=== PATIENT | female | born 1985 | race Hispanic/Latino ===

== ENCOUNTER 2016-10-17 20:08 | Emergency (ER) | payer OTHER ==
[2016-10-17 20:48] LABS: Urine Drugs of Abuse Note Disclamer
--- NOTE | 2016-10-17 20:56 | Emergency Department Report ---
HPI - General Chief Complaint: Psych Time Seen by Provider: 10/17/16 20:42 - HPI HPI: This is a 30-year-old female presents to the emergency Department via PD after she was found sleeping or intoxicated in her car. The patient is suffering from significant depression after she recently had her father from complications of cirrhosis and also recently found out that her boyfriend is "leaving me for his ex-." The patient has a long-standing history of drug abuse including IV heroin and methamphetamines. The patient says that she has been going to the methadone clinic for the past year and has been doing well. However when all of the recent issues piled up, the patient decided that she was going to inject herself with a large amount of heroin in order to end her life. She already had taken some Xanax after having an argument with the boyfriend, and this was on top of the methadone. She sat in the car with the decision of whether or not to inject heroin and says that she did not in fact use it because she fell asleep. Then bystanders or the police knocked on the car and brought him in to be seen. She denies any other past medical or psychiatric history. She does not have a primary care physician. ED Past Medical Hx - Past Medical History Hx Psychiatric Treatment: Yes (Substance abuse) - Social History Smoking Status: Current Every Day Smoker - Medications Home Medications: Home Medications Medication Instructions Recorded Confirmed Last Taken Type Nitrofurantoin Burt/M-Cryst 100 mg PO BID #10 capsule 10/17/16 Unknown Rx [Macrobid CAP] ED Review of Systems ROS: Stated complaint: EVAL Other details as noted in HPI Comment: All other systems reviewed and negative Constitutional: denies: chills, fever Eyes: denies: eye pain, eye discharge, vision change ENT: denies: ear pain, throat pain Respiratory: denies: cough, shortness of breath, wheezing Cardiovascular: denies: chest pain, palpitations Gastrointestinal: denies: abdominal pain, nausea, diarrhea Genitourinary: denies: urgency, dysuria, discharge Musculoskeletal: denies: back pain, joint swelling, arthralgia Skin: denies: rash, lesions Neurological: denies: headache, weakness, paresthesias Psychiatric: depression, suicidal thoughts. denies: auditory hallucinations, visual hallucinations, homicidal thoughts Physical Exam - Physical Exam Vital Signs: Vital Signs 10/17/16 10/17/16 20:37 20:53 Temperature 98.1 F Pulse Rate 90 Respiratory 16 18 Rate Blood Pressure 113/77 [Left] O2 Sat by Pulse 99 99 Oximetry Physical Exam: GENERAL: The patient is well-developed well-nourished. HEENT: Normocephalic. Atraumatic. Extraocular motions are intact. Patient has moist mucous membranes. Pupils equal reactive to light bilaterally. NECK: Supple. Trachea is midline. CHEST/LUNGS: Clear to auscultation. There is no respiratory distress noted. HEART/CARDIOVASCULAR: Regular. There is no tachycardia. There is no gallop rub or murmur. ABDOMEN: Abdomen is soft, nontender. Patient has normal bowel sounds. There is no abdominal distention. SKIN: Skin is warm and dry. NEURO: The patient is awake, alert, and oriented. The patient is cooperative. The patient has no focal neurologic deficits. The patient has normal speech. Normal gait. MUSCULOSKELETAL: There is no tenderness or deformity. There is no limitation range of motion. There is no evidence of acute injury. PSYCH: Patient is crying. She does not appear to be responding to any internal stimuli. Able to hold a normal conversation. ED Course Vital Signs 10/17/16 10/17/16 20:37 20:53 Temperature 98.1 F Pulse Rate 90 Respiratory 16 18 Rate Blood Pressure 113/77 [Left] O2 Sat by Pulse 99 99 Oximetry ED Medical Decision Making - Lab Data Result diagrams: 10/17/16 21:43 10/17/16 21:43 - Medical Decision Making This is a 30-year-old female who presents to the emergency department after she was found sleeping or passed out in her car with a syringe full of heroin with the intent on taking a large dose in order to end her life. The patient is dealing with severe depression secondary to her father's and what appears to be the end of a relationship. She did take the methadone that she usually takes, plus some Xanax, but apparently did not take the heroin. She appears awake and alert in no acute medical distress but she has very upset and crying. Her labs are mostly unremarkable except for the urine drug screen which has multiple positives. Vital signs stable throughout her ED course. The patient has been made a 1013 secondary to the suicidal ideations and intent. She is medically cleared for psychiatric placement. - Differential Diagnosis depression, polysubstance abuse, bipolar disorder Critical Care Time: No Critical care attestation.: If time is entered above; I have spent that time in minutes in the direct care of this critically ill patient, excluding procedure time. ED Disposition Clinical Impression: Suicidal ideations, Polysubstance abuse Depression Qualifiers: Depression Type: unspecified Qualified Code(s): F32.9 - Major depressive disorder, single episode, unspecified UTI (urinary tract infection) Qualifiers: Urinary tract infection type: acute cystitis Hematuria presence: without hematuria Qualified Code(s): N30.00 - Acute cystitis without hematuria Disposition: DC/TX-65 PSY HOSP/PSY UNIT Is pt being admited?: No Condition: Stable Prescriptions: Nitrofurantoin Burt/M-Cryst [Macrobid CAP] 100 mg PO BID #10 capsule Time of Disposition: 22:30
[2016-10-17 21:18] LABS: Bacteria,Urine 1+ /HPF (Negative); Bilirubin,Urine NEG (Negative); Blood,Urine NEG (Negative); Ketones,Urine TR mg/dL (Negative); Leukocyte Esterase,Urine LG (Negative); Mucus,Urine 3+ /HPF; Nitrite,Urine NEG (Negative); Urobilinogen,Urine < 2.0 mg/dL (<2.0)
[2016-10-17 21:23] LABS: WBC,Urine > 182.0 /HPF (0.0-6.0)
[2016-10-17 22:01] LABS: Basophils % (Auto) 0.7 % (0.0-1.8); Eosinophils % (Auto) 3.9 % (0.0-4.3); Hematocrit 38.7 % (30.3-42.9); Hemoglobin 13.1 gm/dl (10.1-14.3); Mean Corpuscular HGB Conc 34 % (30-34); Mean Corpuscular Hemoglobin 30 pg (28-32); Mean Corpuscular Volume 90 fl (79-97); Platelet Count 203 K/mm3 (140-440); Red Blood Count 4.31 M/mm3 (3.65-5.03); Red Cell Distribution Width 13.2 % (13.2-15.2); White Blood Count 10.6 K/mm3 (4.5-11.0)
[2016-10-17] MEDS: MACROBID PO SCH (22:03)
[2016-10-17 22:14] LABS: Anion Gap 15 mmol/L; BUN/Creatinine Ratio 14.44; Blood Urea Nitrogen 13 mg/dL (7-17); Calcium 8.9 mg/dL (8.4-10.2); Carbon Dioxide 27 mmol/L (22-30); Chloride 104.4 mmol/L (98-107); Glucose 94 mg/dL (65-100); Potassium 3.7 mmol/L (3.6-5.0); Sodium 143 mmol/L (137-145)
[2016-10-18] MEDS: MACROBID PO SCH ×2 (11:31→22:27)
[2016-10-19] MEDS ORDERED: ZOFRAN ODT PO ONE (10:54)
[2016-10-19] MEDS ORDERED: ZOFRAN ODT ONE (10:55)
[2016-10-19] MEDS: MACROBID PO SCH ×2 (11:16→22:15)
[2016-10-19] MEDS ORDERED: XANAX PO ONE (11:29)
[2016-10-19] MEDS ORDERED: CATAPRES PO ONE ×2 (11:30→17:37)
[2016-10-19] MEDS ORDERED: ATIVAN PO PRN (14:10)
--- NOTE | 2016-10-19 14:35 | Consultation ---
History of Present Illness - Reason for Consult Consult date: 10/19/16 Reason for consult: Mental Health Evaluation Requesting physician: TRAV SURESH - Chief Complaint Chief complaint: "I feel horrible" - History of Present Psychiatric Illness This is a 30-year-old female presents to the emergency Department via PD after she was found sleeping or intoxicated in her car. Today patient is calm and cooperative during assessment. She stated her father recently and she is having relationship issues with her boyfriend. She stated being overwhelmed and decided to inject herself with heroin (large dose). She denies wanting to overdose or kill herself, but could not explain her actions. She stated doing well the past year by going to the methadone clinic. Since the lost of father and the relationship issues she is having, things in her life has gotten bad per the patient. She stated feeling sad and hopeless prior to injecting herself with the heroin. She stated taking multiple xanax over a period of days which she does not have a prescription. She denies SI/HI's and AVH's. She stated sleeping "okay." She denies a poor appetite. She denies excessive alcohol consumption (etoh). Medications and Allergies Allergies Allergy/AdvReac Type Severity Reaction Status Date / Time No Known Allergies Allergy Verified 12/08/15 20:59 Home Medications Medication Instructions Recorded Confirmed Last Taken Type Nitrofurantoin Tripp/M-Cryst 100 mg PO BID #10 capsule 10/17/16 Unknown Rx [Macrobid CAP] Active Meds: Active Medications Nitrofurantoin Macrocrystals (Macrobid) 100 mg PO BID TRACI Last Admin: 10/19/16 11:16 Dose: 100 mg Past psychiatric history - Past Medical History Past Medical History: No medical history Past Surgical History: No surgical history - past Psychiatric treatment and history psychiatric treatment history: Patient been to multiple rehab services. Denies a fam psy hx. - Social History Social history: lives with family Mental Status Exam - Vital signs Last Vital Signs Temp 98.2 F 10/19/16 11:37 Pulse 62 10/19/16 11:37 Resp 14 10/19/16 11:37 BP 105/63 10/19/16 11:37 Pulse Ox 99 10/19/16 11:37 - Exam Narrative exam: ROS: (+) depression MSE: Appearance: calm, cooperative Behavior: regular eye contact Speech: regular rate and tone Mood: "not well" Affect: labile Thought Process: circumstantial Thought Content: denies SI/HI's and AVH's Motor Activity: lying in bed Cognition: A/Ox 3 Insight: limited Judgment: limited Results Result Diagrams: 10/17/16 21:43 10/17/16 21:43 All other labs normal. Assessment and Plan Assessment and plan: Impression: MDd Severe type. Substance Use DO (amphetamines). Opioid Use DO ( heroin). Anxiolytic Use DO (xanax). Today patient is calm and cooperative during assessment. Patient reports nausea/anxiety (withdrawals). DDx: R/O Bipolar, R/O Substance Use DO Recommendation/Plan: Continue 1013 with placement to inpatient psy services. Start Clonidine 0.1 mg PO BID for anxiety, Ativan 1 mg PO Q6hrs PRN for withdrawals, Prozac 20 mg PO daily for depression, and Zofran 4 mg ODT PO Q6hrs for nausea. Discusssed possible suicidality/medication induced regino with patient reference Prozac.
[2016-10-19] MEDS: PROzac PO SCH (14:49)
[2016-10-19] MEDS ORDERED: HABITROL TD ONE (15:45)
[2016-10-19] MEDS: ZOFRAN ODT PO PRN (16:50)
[2016-10-19] MEDS: CATAPRES PO SCH (22:14)
[2016-10-20] MEDS ORDERED: ATIVAN ONE (10:07)
--- NOTE | 2016-10-20 10:12 | Progress Note ---
Subjective - Reason for Consult Consult date: 10/20/16 Reason for consult: Psychiatry Follow-up - Chief Complaint Chief complaint: "I feel a little better" This is a 30-year-old female presents to the emergency Department via PD after she was found sleeping or intoxicated in her car. Today patient is calm and cooperative during assessment. She stated that she plan to go to a residential facility for her opioid addiction. She stated being embarrassed about this current situation. Patient is adamant about not wanting to kill herself prior to being admitted to [facility]. She stated she was "overwhelmed" at the time. She denies SI/HI's, AVH's, and depression symptoms. Mental Status Exam - Vital signs Last Vital Signs Temp 98.8 F 10/20/16 08:35 Pulse 62 10/20/16 08:35 Resp 20 10/20/16 08:35 BP 120/67 10/20/16 08:35 Pulse Ox 100 10/20/16 08:35 - Exam Narrative exam: MSE: Appearance: calm, cooperative Behavior: regular eye contact Speech: regular rate and tone Mood: "okay" Affect: congruent to mood Thought Process: circumstantial Thought Content: denies SI/HI's and AVH's Motor Activity: lying in bed Cognition: A/Ox 3 Insight: variable Judgment: variable Assessment and Plan Impression: MDD Severe type. Substance Use DO (amphetamines). Opioid Use DO ( heroin). Anxiolytic Use DO (xanax). Today patient is calm and cooperative during assessment. Recommendation/Plan: Evaluate 1013 in 24 hours to determine proper dispo. Continue Clonidine 0.1 mg PO BID for anxiety, Prozac 20 mg PO daily for depression, Zofran 4 mg ODT PO Q6hrs for nausea and started Suboxone 2 mg-0.5 mg SL BID for opioid addiction. Discusssed possible suicidality/medication induced regino with patient reference Prozac. Discussed the importance of abstaining from alcohol when taking Suboxone with patient.
[2016-10-20] MEDS: CATAPRES PO SCH ×2 (10:29→22:30)
[2016-10-20] MEDS: PROzac PO SCH (10:30)
[2016-10-20] MEDS: MACROBID PO SCH ×2 (10:30→22:58)
[2016-10-20] MEDS: ZOFRAN ODT PO PRN (10:30)
[2016-10-20] MEDS: SUBOXONE 2 MG-0.5 MG SL SCH ×2 (15:23→22:58)
[2016-10-21] MEDS: SUBOXONE 2 MG-0.5 MG SL SCH (10:06)
[2016-10-21] MEDS: MACROBID PO SCH (10:06)
[2016-10-21] MEDS: PROzac PO SCH (10:06)
[2016-10-21] MEDS: CATAPRES PO SCH (10:06)
--- NOTE | 2016-10-21 14:18 | Progress Note ---
Subjective - Reason for Consult Consult date: 10/21/16 Reason for consult: follow up - Chief Complaint Chief complaint: "I feel a little better" This is a 30-year-old female presents to the emergency Department via PD after she was found sleeping or intoxicated in her car. Today patient is calm and cooperative during assessment. She denies SI/HI's, AVH's, and depression symptoms. She has plans to follow up with an outpatient provider for suboxone treatment. She denies withdrawal symptoms. She denies cravings. Mental Status Exam - Vital signs Last Vital Signs Temp 98.4 F 10/20/16 21:10 Pulse 61 10/20/16 23:04 Resp 16 10/21/16 08:11 BP 116/71 10/20/16 23:04 Pulse Ox 16 L 10/21/16 08:11 Assessment and Plan MSE: Appearance: calm, cooperative Behavior: regular eye contact Speech: regular rate and tone Mood: "good" Affect: congruent to mood Thought Process: linear Thought Content: denies SI/HI's and AVH's Motor Activity: lying in bed Cognition: A/Ox 3 Insight: fair Judgment: fair Assessment and Plan Impression: MDD Severe type. Substance Use DO (amphetamines). Opioid Use DO ( heroin). Anxiolytic Use DO (xanax). Today patient is calm and cooperative during assessment. No withdrawal symptoms present. No acute safety concerns identified. Her primary condition is substance use disorder. Recommendation/Plan: Rescind 1013 Continue Clonidine 0.1 mg PO BID for anxiety, Prozac 20 mg PO daily for depression, Zofran 4 mg ODT PO Q6hrs for nausea Follow up with an outpatient provider for Suboxone management. Substance rehab resource packet will be provided. Patient will have to call to make appointment.
[2016-10-21 20:05] VITALS: BP 111/67
== END 2016-10-21 20:07 ==
LOC: ED 20:08 → EEVIPCON 20:08 → ED 10-21 20:07
DX: F32.9 Major depressive disorder, single episode, unspecified (principal); N39.0 Urinary tract infection, site not specified; F15.10 Other stimulant abuse, uncomplicated; F11.10 Opioid abuse, uncomplicated; F17.210 Nicotine dependence, cigarettes, uncomplicated
CPT/HCPCS: 36415; 80048; 80307; 81001; 84703; 85025; 99285; G0480; 80320; Q0162

== ENCOUNTER 2018-04-18 16:01 | Emergency (ER) | payer OTHER ==
[2018-04-18] MEDS ORDERED: IBUPROFEN PO ONE (20:09)
--- NOTE | 2018-04-18 21:22 | XRay Report ---
FINAL REPORT EXAM: XRAY RIBS RIGHT W PA CHEST HISTORY: right rib pain TECHNIQUE: Right ribs 4 views PRIORS: None. FINDINGS: No rib fracture identified. No bony lesions seen. No evidence of pneumothorax or pleural effusion wit hin the right sebastian thorax. Otherwise no acute findings. IMPRESSION: Negative rib series
--- NOTE | 2018-04-18 21:23 | XRay Report ---
FINAL REPORT EXAM: XRAY LUMBAR LIMITED HISTORY: LOWER BACK PAIN TECHNIQUE: Lumbar spine 2 views PRIORS: None. FINDINGS: Vertebral bodies demonstrate normal height and alignment. The disc spaces are within normal limits. There is no evidence of spondylolisthesis. Transverse and spinous processes are intact SI joints are unremarkable. IMPRESSION: Negative lumbar spine series
--- NOTE | 2018-04-18 21:24 | XRay Report ---
FINAL REPORT EXAM: XRAY HIP COMPLETE LEFT HISTORY: left hip pain TECHNIQUE: Left hip and AP pelvis PRIORS: None. FINDINGS: No fracture identified. No dislocation seen. Femoral head maintains a normal contour. Joint spaces w ithin normal limits. Adjacent bony pelvis is unremarkable IMPRESSION: Negative hip series
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
--- NOTE | 2018-04-18 22:04 | XRay Report ---
FINAL REPORT EXAM: XRAY C-SPINE LIMITED HISTORY: neck pain TECHNIQUE: Cervical spine five views PRIORS: None. FINDINGS: Vertebral bodies demonstrate normal height and alignment. The disk spaces are within normal limits. The facet joints demonstrate normal alignment. The spinous processes are intact. Craniocervical juan pablo ction is unremarkable. C1 and C2 are intact. IMPRESSION: Negative cervical spine series.
[2018-04-18 22:21] VITALS: BP 118/71
== END 2018-04-18 22:30 | disposition home or self-care (01) ==
LOC: ED 16:01
DX: S13.4XXA Sprain of ligaments of cervical spine, initial encounter (principal); S39.012A Strain of muscle, fascia and tendon of lower back, initial encounter; S76.012A Strain of muscle, fascia and tendon of left hip, initial encounter; S20.211A Contusion of right front wall of thorax, initial encounter; F17.200 Nicotine dependence, unspecified, uncomplicated; V89.2XXA Person injured in unspecified motor-vehicle accident, traffic, initial encounter; Y93.89 Activity, other specified; Y92.488 Other paved roadways as the place of occurrence of the external cause; Y99.8 Other external cause status
CPT/HCPCS: 72040; 72100; 99283

== ENCOUNTER 2019-03-01 17:40 | Emergency (ER) | payer SELFPAY ==
--- NOTE | 2019-03-01 18:08 | Emergency Department Report ---
Blank Doc - Documentation Documentation: 33-year-old female that presents with abdominal pain with blood in stool. This initial assessment/diagnostic orders/clinical plan/treatment(s) is/are subject to change based on patient's health status, clinical progression and re- assessment by fellow clinical providers in the ED. Further treatment and workup at subsequent clinical providers discretion. Patient/guardians urged not to elope from the ED as their condition may be serious if not clinically assessed and managed. Initial orders include: 1- Patient sent to [facility] for further evaluation and treatment 2- UA 3- labs
[2019-03-01 19:24] LABS: Basophils # (Auto) 0.1 K/mm3 (0.0-0.1); Basophils % (Auto) 0.6 % (0.0-1.8); Eosinophils # (Auto) 0.2 K/mm3 (0.0-0.4); Eosinophils % (Auto) 1.8 % (0.0-4.3); Hematocrit 40.6 % (30.3-42.9); Hemoglobin 13.7 gm/dl (10.1-14.3); Mean Corpuscular HGB Conc 34 % (30-34); Mean Corpuscular Volume 93 fl (79-97); Monocytes # (Auto) 0.7 K/mm3 (0.0-0.8); Monocytes % (Auto) 5.8 % (0.0-7.3); Platelet Count 265 K/mm3 (140-440); Red Blood Count 4.39 M/mm3 (3.65-5.03); Red Cell Distribution Width 13.5 % (13.2-15.2)
[2019-03-01 19:45] LABS: Alanine Aminotransferase 13 units/L (7-56); Albumin 4.1 g/dL (3.9-5); BUN/Creatinine Ratio 11; Blood Urea Nitrogen 8 mg/dL (7-17); Calcium 9.6 mg/dL (8.4-10.2); Hemolysis Index 7
[2019-03-01 19:46] LABS: Bilirubin,Urine NEG (Negative); Blood,Urine NEG (Negative); Color,Urine Amber (Yellow); Mucus,Urine 3+ /HPF
--- NOTE | 2019-03-01 22:32 | Emergency Department Report ---
ED Abdominal Pain HPI - General Chief Complaint: Abdominal Pain Stated Complaint: BLOOD CLOT IN STOOL Time Seen by Provider: 03/01/19 18:07 Source: patient Mode of arrival: Ambulatory Limitations: No Limitations - History of Present Illness Initial Comments: This is a 33-year-old female who presents to the emergency room with abdominal cramping and hematochezia 2 days. Patient reports normal bowel movements and denies sensation of constipation. Reports last menstrual period was 02/15/2019. States noticed large amount of blood in toilet with 2 bowel movements over 2 days. She denies nausea, vomiting, diarrhea, chest pain, shortness of breath, headache, dizziness, urinary frequency, urgency, or dysuria. MD Complaint: abdominal pain Onset/Timin -: days(s) Location: diffuse Radiation: none Migration to: no migration Severity: mild Severity scale (0 -10): 3 Quality: cramping Consistency: intermittent Improves With: nothing Worsens With: bowel movement Associated Symptoms: hematochezia - Related Data LMP Date: 02/15/19 Previous Rx's Medication Instructions Recorded Last Taken Type Nitrofurantoin [place]/M-Cryst 100 mg PO BID #10 capsule 10/17/16 Unknown Rx [Macrobid CAP] Cyclobenzaprine [Flexeril] 10 mg PO QHS PRN #10 tablet 04/18/18 Unknown Rx Ibuprofen [Motrin] 600 mg PO Q8H PRN #20 tablet 04/18/18 Unknown Rx Hydrocortisone [Anucort-HC SUPPOS] 25 mg RC BID #14 supp.rect 03/01/19 Unknown Rx Allergies Allergy/AdvReac Type Severity Reaction Status Date / Time No Known Allergies Allergy Verified 12/08/15 20:59 ED Review of Systems ROS: Stated complaint: BLOOD CLOT IN STOOL Other details as noted in HPI Constitutional: denies: chills, fever Respiratory: denies: cough, shortness of breath, wheezing Cardiovascular: denies: chest pain, palpitations Gastrointestinal: abdominal pain, hematochezia. denies: nausea, diarrhea Genitourinary: denies: urgency, dysuria, discharge Musculoskeletal: denies: back pain, joint swelling, arthralgia Skin: denies: rash, lesions Neurological: denies: headache, weakness, paresthesias Psychiatric: denies: anxiety, depression ED Past Medical Hx - Past Medical History Previous Medical History?: Yes Hx Psychiatric Treatment: Yes (Substance abuse) Additional medical history: urethral diverticulitis - Surgical History Past Surgical History?: Yes Additional Surgical History: Surgery for urethral diverticulitis - Social History Smoking Status: Current Every Day Smoker Substance Use Type: None - Medications Home Medications: Home Medications Medication Instructions Recorded Confirmed Last Taken Type Nitrofurantoin [place]/M-Cryst 100 mg PO BID #10 capsule 10/17/16 Unknown Rx [Macrobid CAP] Cyclobenzaprine [Flexeril] 10 mg PO QHS PRN #10 tablet 04/18/18 Unknown Rx Ibuprofen [Motrin] 600 mg PO Q8H PRN #20 tablet 04/18/18 Unknown Rx Hydrocortisone [Anucort-HC SUPPOS] 25 mg RC BID #14 supp.rect 03/01/19 Unknown Rx ED Physical Exam - General Limitations: No Limitations General appearance: alert, in no apparent distress - Respiratory Respiratory exam: Present: normal lung sounds bilaterally. Absent: respiratory distress - Cardiovascular Cardiovascular Exam: Present: regular rate, normal rhythm. Absent: systolic murmur, diastolic murmur, rubs, gallop - GI/Abdominal GI/Abdominal exam: Present: soft, normal bowel sounds. Absent: distended, tenderness, guarding, rebound, rigid, organomegaly, hernia - Rectal Rectal exam: Present: normal rectal tone, hemorrhoids (internal hemorrhoids). Absent: heme (-) stool, black stool, bloody stool, mass, tenderness - Back Exam Back exam: Absent: CVA tenderness (R), CVA tenderness (L) - Neurological Exam Neurological exam: Present: alert, oriented X3 - Psychiatric Psychiatric exam: Present: normal affect, normal mood - Skin Skin exam: Present: warm, dry, intact, normal color. Absent: rash ED Course Vital Signs 03/01/19 18:08 Temperature 97.3 F L Pulse Rate 95 H Respiratory 18 Rate Blood Pressure 121/83 O2 Sat by Pulse 96 Oximetry ED Medical Decision Making - Lab Data Result diagrams: 03/01/19 19:03 03/01/19 19:03 Lab Results 03/01/19 03/01/19 03/01/19 Range/Units 19:03 19:03 19:03 WBC 11.5 H (4.5-11.0) K/mm3 RBC 4.39 (3.65-5.03) M/mm3 Hgb 13.7 (10.1-14.3) gm/dl Hct 40.6 (30.3-42.9) % MCV 93 (79-97) fl MCH 31 (28-32) pg MCHC 34 (30-34) % RDW 13.5 (13.2-15.2) % Plt Count 265 (140-440) K/mm3 Lymph % (Auto) 35.0 (13.4-35.0) % [place] % (Auto) 5.8 (0.0-7.3) % Eos % (Auto) 1.8 (0.0-4.3) % Baso % (Auto) 0.6 (0.0-1.8) % Lymph # 4.0 (1.2-5.4) K/mm3 [place] # 0.7 (0.0-0.8) K/mm3 Eos # 0.2 (0.0-0.4) K/mm3 Baso # 0.1 (0.0-0.1) K/mm3 Seg Neutrophils % 56.8 (40.0-70.0) % Seg Neutrophils # 6.5 (1.8-7.7) K/mm3 Sodium 138 (137-145) mmol/L Potassium 4.9 (3.6-5.0) mmol/L Chloride 103.2 (98-107) mmol/L Carbon Dioxide 24 (22-30) mmol/L Anion Gap 16 mmol/L BUN 8 (7-17) mg/dL Creatinine 0.7 (0.7-1.2) mg/dL Estimated GFR > 60 ml/min BUN/Creatinine Ratio 11 % Glucose 112 H (65-100) mg/dL Calcium 9.6 (8.4-10.2) mg/dL Total Bilirubin 0.20 (0.1-1.2) mg/dL AST 18 (5-40) units/L ALT 13 (7-56) units/L Alkaline Phosphatase 64 (35-129) units/L Total Protein 7.3 (6.3-8.2) g/dL Albumin 4.1 (3.9-5) g/dL Albumin/Globulin Ratio 1.3 % HCG, Qual Negative (Negative) Urine Color (Yellow) Urine Turbidity (Clear) Urine pH (5.0-7.0) Ur Specific [place] (1.003-1.030) Urine Protein (Negative) mg/dL Urine Glucose (UA) (Negative) mg/dL Urine Ketones (Negative) mg/dL Urine Blood (Negative) Urine Nitrite (Negative) Urine Bilirubin (Negative) Urine Urobilinogen (<2.0) mg/dL Ur Leukocyte Esterase (Negative) Urine WBC (Auto) (0.0-6.0) /HPF Urine RBC (Auto) (0.0-6.0) /HPF U Epithel Cells (Auto) (0-13.0) /HPF Urine Mucus /HPF 03/01/ Range/Units 19:18 WBC (4.5-11.0) K/mm3 RBC (3.65-5.03) M/mm3 Hgb (10.1-14.3) gm/dl Hct (30.3-42.9) % MCV (79-97) fl MCH (28-32) pg MCHC (30-34) % RDW (13.2-15.2) % Plt Count (140-440) K/mm3 Lymph % (Auto) (13.4-35.0) % [place] % (Auto) (0.0-7.3) % Eos % (Auto) (0.0-4.3) % Baso % (Auto) (0.0-1.8) % Lymph # (1.2-5.4) K/mm3 [place] # (0.0-0.8) K/mm3 Eos # (0.0-0.4) K/mm3 Baso # (0.0-0.1) K/mm3 Seg Neutrophils % (40.0-70.0) % Seg Neutrophils # (1.8-7.7) K/mm3 Sodium (137-145) mmol/L Potassium (3.6-5.0) mmol/L Chloride (98-107) mmol/L Carbon Dioxide (22-30) mmol/L Anion Gap mmol/L BUN (7-17) mg/dL Creatinine (0.7-1.2) mg/dL Estimated GFR ml/min BUN/Creatinine Ratio % Glucose (65-100) mg/dL Calcium (8.4-10.2) mg/dL Total Bilirubin (0.1-1.2) mg/dL AST (5-40) units/L ALT (7-56) units/L Alkaline Phosphatase (35-129) units/L Total Protein (6.3-8.2) g/dL Albumin (3.9-5) g/dL Albumin/Globulin Ratio % HCG, Qual (Negative) Urine Color [place] (Yellow) Urine Turbidity Cloudy (Clear) Urine pH 5.0 (5.0-7.0) Ur Specific [place] 1.028 (1.003-1.030) Urine Protein 30 mg/dl (Negative) mg/dL Urine Glucose (UA) Neg (Negative) mg/dL Urine Ketones Tr (Negative) mg/dL Urine Blood Neg (Negative) Urine Nitrite Neg (Negative) Urine Bilirubin Neg (Negative) Urine Urobilinogen 2.0 (<2.0) mg/dL Ur Leukocyte Esterase Neg (Negative) Urine WBC (Auto) 3.0 (0.0-6.0) /HPF Urine RBC (Auto) 3.0 (0.0-6.0) /HPF U Epithel Cells (Auto) 51.0 H (0-13.0) /HPF Urine Mucus 3+ /HPF - Medical Decision Making This is a 33 y.o. female that presents with hematochezia and abdominal cramps for 2 days.. Patient examined by me and stable. No distress noted. Labs obtained and all unremarkable. Occult stool negative on exam, palpated internal he morrhoids. Start hydrocortisone suppository. Referral to primary care doctor for continued care. Discussed plan with patient and she agreed with plan to treat outpatient. Discharged home. Return to work tomorrow. Follow up with PCP in 48-72 hours. Critical care attestation.: If time is entered above; I have spent that time in minutes in the direct care of this critically ill patient, excluding procedure time. ED Disposition Clinical Impression: Blood present in stool, Acute hemorrhoid, Abdominal cramping Disposition: DC-01 TO HOME OR SELFCARE Is pt being admited?: No Condition: Stable Instructions: Abdominal Pain (ED), Hemorrhoids (ED) Additional Instructions: Increase fiber intake with foods and/or metamucil. Increase water intake and drink or eat prunes. Take colace daily to soften stool. Follow up with primary care doctor from referral list below in 24-72 hours. Prescriptions: Hydrocortisone [Anucort-HC SUPPOS] 25 mg RC BID #14 supp.rect Referrals: [facility] [Outside] - 3-5 Days [facility] [Outside] - 3-5 Days [facility] [Outside] - 3-5 Days Forms: Work/School Release Form(ED) Time of Disposition: 22:37
[2019-03-01 22:46] VITALS: BP 112/73
== END 2019-03-01 22:47 | disposition home or self-care (01) ==
LOC: ED 17:40
DX: K92.1 Melena (principal); K64.9 Unspecified hemorrhoids; F19.10 Other psychoactive substance abuse, uncomplicated; F17.200 Nicotine dependence, unspecified, uncomplicated; Z98.890 Other specified postprocedural states; Z79.1 Long term (current) use of non-steroidal anti-inflammatories (NSAID); Z79.899 Other long term (current) drug therapy
CPT/HCPCS: 36415; 80053; 81001; 84703; 85025